=== PATIENT | female | born 1995 | race American Indian/Alaskan Native ===

== ENCOUNTER 2020-05-14 18:56 | Emergency (ER) | payer MEDICAID ==
[2020-05-14 19:32] VITALS: BP 118/76
--- NOTE | 2020-05-14 19:36 | Event Note ---
ED Screening Note Date of service: 05/14/20 Time: 19:35 ED Screening Note: Patient complains of vaginal itching x2 days 8 weeks Denies vaginal discharge or vaginal bleeding or abdominal pain This initial assessment/diagnostic orders/clinical plan/treatment(s) is/are subject to change based on patients health status, clinical progression and re- assessment by fellow clinical providers in the ED. Further treatment and workup at subsequent clinical providers discretion. Patient/guardian urged not to elope from the ED as their condition may be serious if not clinically assessed and managed. Initial orders include: UA ACC evaluation
[2020-05-14 20:24] LABS: Bilirubin,Urine NEG (Negative); Blood,Urine NEG (Negative); Color,Urine Colorless (Yellow); Protein,Urine <15 mg/dL mg/dL (Negative); Urobilinogen,Urine < 2.0 mg/dL (<2.0)
--- NOTE | 2020-05-15 00:38 | Emergency Department Report ---
ED General Adult HPI - General Chief complaint: Urogenital-Female Stated complaint: VAGINAL ITCH/UTI/POSS BLADDER INFECTION Time Seen by Provider: 05/14/20 19:35 Source: patient Mode of arrival: Ambulatory Limitations: No Limitations - History of Present Illness Initial comments: 25-year-old female complaining of sore throat and vaginal itching. She denies fever chills cough nausea vomiting. Patient states that she is confirmed by [facility] department. She denies abdominal pain, she denies vaginal bleeding, she denies abnormal vaginal discharge. patient states she is concerned that she might have a urinary tract infection. Patient has not seen [facility] as yet but states that she plans to set an appointment up closer to her home in [place]. Patient in no acute distress and she denies any past medical history -: days(s) (2) Associated Symptoms: denies other symptoms. denies: confusion, chest pain, cough, diaphoresis, fever/chills, headaches, loss of appetite, malaise, nausea/vomiting, weakness, other - Related Data Allergies Allergy/AdvReac Type Severity Reaction Status Date / Time benzoyl peroxide Allergy Rash Verified 05/14/20 19:40 ED Review of Systems ROS: Stated complaint: VAGINAL ITCH/UTI/POSS BLADDER INFECTION Other details as noted in HPI Comment: All other systems reviewed and negative Constitutional: denies: chills, fever, malaise ENT: throat pain, congestion. denies: ear pain, dental pain Cardiovascular: denies: chest pain, palpitations, dyspnea on exertion, orthopnea Endocrine: denies: excessive sweating, flushing, intolerance to cold Gastrointestinal: denies: abdominal pain Genitourinary: dysuria, other (Vaginal itching). denies: discharge Skin: denies: rash, lesions, change in color, change in hair/nails, pruritus Neurological: denies: headache, paresthesias Psychiatric: denies: anxiety, depression, auditory hallucinations ED Past Medical Hx - Past Medical History Previous Medical History?: No - Surgical History Past Surgical History?: No - Social History Smoking Status: Never Smoker Substance Use Type: None ED Physical Exam - General Limitations: No Limitations General appearance: alert, in no apparent distress - Head Head exam: Present: atraumatic - ENT ENT exam: Present: normal exam, normal orophraynx, mucous membranes moist, TM's normal bilaterally - Neck Neck exam: Present: normal inspection, full ROM. Absent: lymphadenopathy - Respiratory Respiratory exam: Present: normal lung sounds bilaterally. Absent: respiratory distress, wheezes, rales, rhonchi - Cardiovascular Cardiovascular Exam: Present: regular rate, normal heart sounds - GI/Abdominal GI/Abdominal exam: Present: soft, normal bowel sounds. Absent: distended, tenderness, rigid - Extremities Exam Extremities exam: Present: normal inspection - Back Exam Back exam: Present: normal inspection - Neurological Exam Neurological exam: Present: alert, oriented X3 - Psychiatric Psychiatric exam: Present: normal affect - Skin Skin exam: Present: warm, dry, intact, normal color ED Course Vital Signs 05/14/20 19:31 Temperature 98.0 F Pulse Rate 78 Respiratory 18 Rate Blood Pressure 118/76 O2 Sat by Pulse 100 Oximetry ED Medical Decision Making - Medical Decision Making 25-year-old patient with known positive test. She presents to the emergency today with complaint of sore throat and vaginal itching she denies any vaginal discharge she denies abdominal pain she denies vaginal bleeding. Patient states she just wants to know if she has a urinary tract infection. Urinalysis is negative for infection she does have a positive test. awaiting rapid strep report. Before results of rapid strep returned patient left emergency room department AGAINST MEDICAL ADVICE . Critical Care Time: No Critical care attestation.: If time is entered above; I have spent that time in minutes in the direct care of this critically ill patient, excluding procedure time. ED Disposition Clinical Impression: Pharyngitis Qualifiers: Pharyngitis/tonsillitis etiology: unspecified etiology Qualified Code(s): J02.9 - Acute pharyngitis, unspecified Disposition: LEFT AGAINST MED ADVICE Is pt being admited?: No Does the pt Need Aspirin: No Condition: Stable Referrals: PRIMARY CARE, [Primary Care Provider] - 3-5 Days Time of Disposition: 01:33
[2020-05-15 01:25] LABS: HCG Qualitative,Urine Positive (Negative)
== END 2020-05-15 01:25 | disposition left against medical advice (07) ==
LOC: ED 18:56
DX: J02.9 Acute pharyngitis, unspecified (principal); L29.9 Pruritus, unspecified; Z88.8 Allergy status to other drugs, medicaments and biological substances
CPT/HCPCS: 81001; 81025